=== PATIENT | male | born 1985 | race African-American/Black ===

== ENCOUNTER 2021-04-06 13:56 | Emergency (ER) | payer SELFPAY ==
--- NOTE | 2021-04-06 16:21 | EDM.PDOCBH ---
ED HPI GENERAL MEDICAL PROBLEM - General Chief Complaint: Behavioral/Psych Stated Complaint: SUICIDAL IDEATIONS Time Seen by Provider: 04/06/21 15:39 Source of Information: Reports: Patient History Limitations: Reports: No Limitations - History of Present Illness INITIAL COMMENTS - FREE TEXT/NARRATIVE: 35-year-old male presents the emergency department with complaints of suicidal ideations. Patient states he recently moved up here from [place] to get a job however he has not gotten 1 yet. He is currently homeless. States he has been sleeping outside or wherever he can find a place to stay. He states for the past few days he has been feeling hopeless and suicidal. He does have a history of suicide attempt 1 to 2 months ago and he tells me he was hospitalized for 5 d ays at that time. At that time he states he did attempt to jump in front of traffic to kill himself. He was discharged home on Haldol however he states that is too strong and he has not taking the medication. Does have a history of bipolar disorder and depression for about the past 8 years. He denies any illicit drug use. He denies alcohol use. And he does admit to smoking cigarettes from time to time. He states he is currently suicidal and states he will do whatever it takes to kill himself whether it be jump off a building etc. he does admit to having visual hallucinations such as being followed by someone trying to hurt him and he also sees flashes of lights. He is states when he sees the flashes of light it triggers him to feel homicidal. Physical exam is essentially unremarkable. The patient is hemodynamically stable. I have ordered labs to include a CBC, CMP, magnesium level, TSH, acetaminophen level, salicylate level, urine drug screen and blood alcohol level. We will obtain a Covid swab as well. - Related Data Allergies Allergy/AdvReac Type Severity Reaction Status Date / Time No Known Allergies Allergy Verified 04/06/21 14:34 Home Meds: Home Meds . [No Known Home Meds] 04/06/21 [History] Past Medical History - Past Health History Medical/Surgical History: Denies Medical/Surgical History Social & Family History - Tobacco Use Tobacco Use Status *Q: Never Tobacco User ED ROS GENERAL - Review of Systems Review Of Systems: Comprehensive ROS is negative, except as noted in HPI. ED EXAM, BEHAVIORAL HEALTH - Physical Exam Exam: See Below Exam Limited By: No Limitations General Appearance: Alert, WD/WN, No Apparent Distress Ears: Normal External Exam, Hearing Grossly Normal Nose: Normal Inspection Throat/Mouth: Normal Inspection, Normal Lips, Normal Voice, No Airway Compromise Head: Atraumatic, Normocephalic Neck: Normal Inspection, Supple Respiratory/Chest: No Respiratory Distress, Lungs Clear, Normal Breath Sounds, No Accessory Muscle Use, Chest Non-Tender Cardiovascular: Normal Peripheral Pulses, Regular Rate, Rhythm, No Edema, No Murmur GI/Abdominal: Normal Bowel Sounds, Soft, Non-Tender, No Distention (Male) Exam: Deferred Rectal (Males) Exam: Deferred Back Exam: Normal Inspection Extremities: Normal Inspection Neurological: Alert, Oriented x 3 COURSE, BEHAVIORAL HEALTH COMP - Course Vital Signs: Last Vital Signs Temp 97.5 F 04/06/21 14:29 Pulse 58 L 04/06/21 14:29 Resp 20 04/06/21 14:29 BP 127/76 04/06/21 14:29 Pulse Ox 99 04/06/21 14:29 Orders, Labs, Meds: Active Orders 24 hr Category Date Time Status Suicide Precautions [RC] Q15M Care 04/06/21 14:45 Active Laboratory Tests 04/06/21 04/06/21 04/06/21 Range/Units 13:05 13:05 14:45 WBC (4.23-9.07) K/mm3 RBC (4.63-6.08) M/mm3 Hgb (13.7-17.5) gm/dl Hct (40.1-51.0) % MCV (79.0-92.2) fl MCH (25.7-32.2) pg MCHC (32.2-35.5) g/dl RDW Std Deviation (35.1-43.9) fL Plt Count (163-337) K/mm3 MPV (9.4-12.3) fl Neut % (Auto) (34.0-67.9) % Lymph % (Auto) (21.8-53.1) % Trinity % (Auto) (5.3-12.2) % Eos % (Auto) (0.8-7.0) Baso % (Auto) (0.1-1.2) % Neut # (Auto) (1.78-5.38) K/mm3 Lymph # (Auto) (1.32-3.57) K/mm3 Trinity # (Auto) (0.30-0.82) K/mm3 Eos # (Auto) (0.04-0.54) K/mm3 Baso # (Auto) (0.01-0.08) K/mm3 Sodium (136-145) mEq/L Potassium (3.5-5.1) mEq/L Chloride (98-107) mEq/L Carbon Dioxide (21-32) mEq/L Anion Gap (5-15) BUN (7-18) mg/dL Creatinine (0.7-1.3) mg/dL Est Cr Clr Drug Dosing mL/min Estimated GFR (MDRD) (>60) mL/min BUN/Creatinine Ratio (14-18) Glucose (70-99) mg/dL Calcium (8.5-10.1) mg/dL Magnesium 1.9 (1.8-2.4) mg/dL Total Bilirubin (0.2-1.0) mg/dL AST (15-37) U/L ALT (16-63) U/L Alkaline Phosphatase (46-116) U/L Total Protein (6.4-8.2) g/dl Albumin (3.4-5.0) g/dl Globulin gm/dL Albumin/Globulin Ratio (1-2) TSH 3rd Generation 0.317 L (0.358-3.74) uIU/mL Salicylates 2.7 L (2.8-20) mg/dL Urine Opiates Screen (NRQCWJ=154) Ur Buprenorphine Scrn (CUTOFF=10) Ur Oxycodone Screen (IMJ8EC=791) Urine Methadone Screen (TDG9IX=281) Ur Propoxyphene Screen (LGJSJT=615) Acetaminophen 0 L (10-30) ug/mL Ur Barbiturates Screen (DYPFWT=252) Ur Tricyclics Screen (ZYPRXJ=914) Ur Phencyclidine Scrn (CUTOFF=25) Ur Amphetamine Screen (VSIGAM=907) U Methamphetamines Scrn (QQXHGP=132) U Benzodiazepines Scrn (PFJCTR=989) U Cocaine Metab Screen (DJEHPK=055) U Marijuana (THC) Screen (CUTOFF=50) Ethyl Alcohol (0.00) gm% SARS-CoV-2 RNA (VASQUEZ) Negative (NEGATIVE) 09/11/2104/06/21 04/06/21 Range/Units 15:05 15:05 17:10 WBC 5.25 (4.23-9.07) K/mm3 RBC 5.00 (4.63-6.08) M/mm3 Hgb 14.3 (13.7-17.5) gm/dl Hct 45.3 (40.1-51.0) % MCV 90.6 (79.0-92.2) fl MCH 28.6 (25.7-32.2) pg MCHC 31.6 L (32.2-35.5) g/dl RDW Std Deviation 46.6 H (35.1-43.9) fL Plt Count 270 (163-337) K/mm3 MPV 8.2 L (9.4-12.3) fl Neut % (Auto) 49.4 (34.0-67.9) % Lymph % (Auto) 37.7 (21.8-53.1) % Trinity % (Auto) 9.1 (5.3-12.2) % Eos % (Auto) 3.2 (0.8-7.0) Baso % (Auto) 0.6 (0.1-1.2) % Neut # (Auto) 2.59 (1.78-5.38) K/mm3 Lymph # (Auto) 1.98 (1.32-3.57) K/mm3 Trinity # (Auto) 0.48 (0.30-0.82) K/mm3 Eos # (Auto) 0.17 (0.04-0.54) K/mm3 Baso # (Auto) 0.03 (0.01-0.08) K/mm3 Sodium 143 (136-145) mEq/L Potassium 3.4 L (3.5-5.1) mEq/L Chloride 106 (98-107) mEq/L Carbon Dioxide 30 (21-32) mEq/L Anion Gap 10.4 (5-15) BUN 11 (7-18) mg/dL Creatinine 1.3 (0.7-1.3) mg/dL Est Cr Clr Drug Dosing 71.57 mL/min Estimated GFR (MDRD) > 60 (>60) mL/min BUN/Creatinine Ratio 8.5 L (14-18) Glucose 103 H (70-99) mg/dL Calcium 8.4 L (8.5-10.1) mg/dL Magnesium (1.8-2.4) mg/dL Total Bilirubin 0.7 (0.2-1.0) mg/dL AST 10 L (15-37) U/L ALT 18 (16-63) U/L Alkaline Phosphatase 62 (46-116) U/L Total Protein 6.9 (6.4-8.2) g/dl Albumin 3.5 (3.4-5.0) g/dl Globulin 3.4 gm/dL Albumin/Globulin Ratio 1.0 (1-2) TSH 3rd Generation (0.358-3.74) uIU/mL Salicylates (2.8-20) mg/dL Urine Opiates Screen Negative (CSKZUY=054) Ur Buprenorphine Scrn Negative (CUTOFF=10) Ur Oxycodone Screen Negative (WXD8ZY=984) Urine Methadone Screen Negative (ATA1GD=878) Ur Propoxyphene Screen Negative (ZNLTUY=871) Acetaminophen (10-30) ug/mL Ur Barbiturates Screen Negative (DEWTYL=525) Ur Tricyclics Screen Negative (ISQHAT=977) Ur Phencyclidine Scrn Negative (CUTOFF=25) Ur Amphetamine Screen Negative (IQEZVV=023) U Methamphetamines Scrn Presumptive positive H (MLSCSL=653) U Benzodiazepines Scrn Negative (STCMDV=449) U Cocaine Metab Screen Presumptive positive H (PPKITW=594) U Marijuana (THC) Screen Presumptive positive H (CUTOFF=50) Ethyl Alcohol 0.00 (0.00) gm% SARS-CoV-2 RNA (VASQUEZ) (NEGATIVE) Re-Assessment/Re-Exam: Discussed the case with [facility] physician on-call and he states he is going to be up to evaluate the patient's. Hematology reveals a WBC of 5.25, hemoglobin 14.3, hematocrit 45.3, platelet count 270 Chemistry reveals a sodium of 143, potassium 3.4, chloride 106, carbon dioxide 30, anion gap 10.4, BUN 11, creatinine 1.3, glucose 103, calcium 8.4, magnesium 1.9, TSH 0.317 Toxicology reveals salicylate level of 2.7, acetaminophen level of 0, ethyl alcohol 0.00, urine drug screen is presumptive positive for methamphetamines, presumptive positive for cocaine, presumptive positive for marijuana, patient is Covid negative After evaluation, patient has stated that if he does not receive inpatient treatment, he will be homicidal. [facility] director of environmental services states they do need to be committed and sent to inpatient treatment. I have phone [facility] call and they do not have any beds available. I then phoned [facility] call and they do have 1 bed available however I do not feel this patient is appropriate to have a roommate so they are going to see if they can move patients around in order to accept this patient and admit. They state they will be calling me back. [facility] ph[facility] me back and states they do not have a bed available for him as he will need a room by himself. [facility] has been contacted and we are waiting for callback. Re-Assessment/Re-Exam Date: 04/06/21 (After further evaluation, the patient will be discharged to the [facility].) Departure - Departure Time of Disposition: 20:00 Disposition: DC/Tfer to Psych Hosp/Unit 65 Condition: Good Clinical Impression: Depressive disorder, Hallucinations, Drug abuse - Discharge Information Referrals: PCP,None [Primary Care Provider] - Forms: ED Department Discharge Additional Instructions: You were seen in the emergency department with complaints of suicidal ideations. Labs were completed as well as Covid screening. Your Covid negative. After evaluation from [facility], it has been decided that he will be sent to the [facility]. Sepsis Event Note (ED) - Focused Exam Vital Signs: Vital Signs Temp Pulse Resp BP Pulse Ox 04/06/21 14:29 97.5 F 58 L 20 127/76 99 - My Orders Last 24 Hours: My Active Orders 04/06/21 14:45 Suicide Precautions [RC] Q15M - Assessment/Plan Last 24 Hours: My Active Orders 04/06/21 14:45 Suicide Precautions [RC] Q15M
--- NOTE | 2021-04-06 23:07 | PCM.EKG ---
#1 Interpretation EKG Date: 04/06/21 Time: 14:51 Rhythm: NSR Rate (Beats/Min): 58 [place]: Normal P-Wave: Present QRS: Normal ST-T: Normal QT: Normal Comparison: NA - No Prior EKG EKG Interpretation Comments: Per Dr. Hernandez interpretation: Sinus rhythm at 58 bpm; RSR prime V1 and [id number] normal variant; borderline LVH pattern; T wave inversion in V3; T wave flattened III
== END 2021-04-06 20:35 ==
LOC: JD.ED 13:56
DX: F32.9 Major depressive disorder, single episode, unspecified (principal); R44.3 Hallucinations, unspecified; F15.10 Other stimulant abuse, uncomplicated; F12.10 Cannabis abuse, uncomplicated; F14.10 Cocaine abuse, uncomplicated; F17.210 Nicotine dependence, cigarettes, uncomplicated; Z20.822 Contact with and (suspected) exposure to COVID-19
CPT/HCPCS: 36415; 80053; 80143; 80179; 80306; 80307; 83735; 84443; 85025; 93005; 99285; 99285-25; U0002

== ENCOUNTER 2024-03-06 23:43 | Emergency (ER) | payer SELFPAY ==
[2024-03-07] MEDS: LORazepam 1 MG Tab PO ONE (00:24)
[2024-03-07] MEDS: LORazepam 2 MG/ML SDV IM ONE (07:53)
[2024-03-07] MEDS: OLANZapine 10 MG Vial IM ONE (08:14)
[2024-03-07 09:01] LABS: BASOPHILS PERCENT AUTO 0.3 % (0.0-1.0); EOSINOPHILS ABSOLUTE AUTO 0.1 K/mm3 (0.0-0.4); EOSINOPHILS PERCENT AUTO 1.6 % (0.0-6.0); HEMATOCRIT 45.8 % (42.0-52.0); HEMOGLOBIN 14.6 gm/dl (14.0-18.0); IMMATURE GRAN ABSOLUTE AUTO 0.01 K/mm3 (0.00-0.05); IMMATURE GRAN PERCENT AUTO 0.2 % (0.0-0.4); LYMPHOCYTES ABSOLUTE AUTO 2.5 K/mm3 (1.0-4.8); LYMPHOCYTES PERCENT AUTO 40.7 % (24.0-44.0); MEAN CORPUSCULAR HEMOGLOBIN 27.4 pg (28.0-32.0); MEAN CORPUSCULAR HGB CONC 31.9 g/dl (32.0-36.0); MEAN CORPUSCULAR VOLUME 86.1 fl (83.0-99.0); MEAN PLATELET VOLUME 8.2 fl (9.4-12.4); MONOCYTES ABSOLUTE AUTO 0.5 K/mm3 (0.0-0.8); NEUTROPHILS PERCENT AUTO 49.2 % (41.0-71.0); PLATELET COUNT,PLT 262 K/mm3 (150-400); RED BLOOD CELL COUNT 5.32 M/mm3 (4.52-5.90); WHITE BLOOD CELL COUNT,WBC 6.14 K/mm3 (3.9-11.3)
[2024-03-07] MEDS: Haloperidol Lactate 5 MG/ML SDV IM ONE (09:04)
[2024-03-07] MEDS: diphenhydrAMINE 50 MG/ML SDV IVPUSH ONE (09:04)
[2024-03-07 09:30] LABS: ALBUMIN 3.6 g/dl (3.4-5.0); BILIRUBIN TOTAL 0.4 mg/dL (0.2-1.0); BUN/CREATININE RATIO 6.7 (14-18); CALCIUM 8.5 mg/dL (8.5-10.1); CREATININE 1.2 mg/dL (0.7-1.3); EST CRCL DRUG DOSING (CG) 67.17 mL/min; ETHANOL BLOOD MEDICAL 0.11 gm% (0.00); MAGNESIUM 1.9 mg/dL (1.8-2.4); PROTEIN TOTAL,TP 7.1 g/dl (6.4-8.2)
[2024-03-07] MEDS: OLANZapine 10 MG Vial ONE (09:41)
[2024-03-07 09:54] LABS: TSH 0.666 uIU/mL (0.358-3.74)
[2024-03-07 17:32] LABS: BARBITURATE SCREEN,URINE NEGATIVE (CUTOFF=200); BENZODIAZEPINES SCREEN,URINE PRESUMPTIVE POSITIVE (CUTOFF=150); BUPRENORPHINE SCREEN,URINE NEGATIVE (CUTOFF=10); METHADONE SCREEN, URINE NEGATIVE (CUT0FF=200); METHAMPHETAMINES SCREEN, URINE NEGATIVE (CUTOFF=500); OXYCODONE SCREEN,URINE NEGATIVE (CUT0FF=100); THC SCREEN,URINE 20 NG/ML NEGATIVE (CUTOFF=50)
[2024-03-07 17:35] LABS: AMPHETAMINES SCREEN, URINE NEGATIVE (CUTOFF=500)
== END 2024-03-07 19:34 ==
LOC: JD.ED 23:43
DX: R45.851 Suicidal ideations (principal); R44.3 Hallucinations, unspecified; F10.920 Alcohol use, unspecified with intoxication, uncomplicated; F31.9 Bipolar disorder, unspecified
CPT/HCPCS: 36415; 80053; 80143; 80179; 80306; 80307; 83735; 84443; 85025; 93005; 96372; 99285; A9270; C1758; J2060; J2405; 93010; 99284

== ENCOUNTER 2024-04-01 01:45 | Emergency (ER) | payer SELFPAY ==
[2024-04-01 06:54] LABS: BASOPHILS PERCENT AUTO 0.3 % (0.0-1.0); EOSINOPHILS ABSOLUTE AUTO 0.1 K/mm3 (0.0-0.4); EOSINOPHILS PERCENT AUTO 1.5 % (0.0-6.0); HEMATOCRIT 47.4 % (42.0-52.0); HEMOGLOBIN 15.3 gm/dl (14.0-18.0); IMMATURE GRAN ABSOLUTE AUTO 0.01 K/mm3 (0.00-0.05); IMMATURE GRAN PERCENT AUTO 0.2 % (0.0-0.4); LYMPHOCYTES ABSOLUTE AUTO 2.8 K/mm3 (1.0-4.8); LYMPHOCYTES PERCENT AUTO 42.1 % (24.0-44.0); MEAN CORPUSCULAR HEMOGLOBIN 27.6 pg (28.0-32.0); MEAN CORPUSCULAR HGB CONC 32.3 g/dl (32.0-36.0); MEAN CORPUSCULAR VOLUME 85.6 fl (83.0-99.0); MEAN PLATELET VOLUME 8.5 fl (9.4-12.4); MONOCYTES ABSOLUTE AUTO 0.7 K/mm3 (0.0-0.8); MONOCYTES PERCENT AUTO 10.2 % (0.0-8.0); NEUTROPHILS PERCENT AUTO 45.7 % (41.0-71.0); PLATELET COUNT,PLT 255 K/mm3 (150-400); RED BLOOD CELL COUNT 5.54 M/mm3 (4.52-5.90); WHITE BLOOD CELL COUNT,WBC 6.65 K/mm3 (3.9-11.3)
[2024-04-01 07:32] LABS: A/G RATIO 1.1 (1-2); ALBUMIN 3.7 g/dl (3.4-5.0); ANION GAP 13.8 (5-15); BILIRUBIN TOTAL 0.8 mg/dL (0.2-1.0); BUN/CREATININE RATIO 13.6 (14-18); CALCIUM 9.2 mg/dL (8.5-10.1); CREATININE 1.4 mg/dL (0.7-1.3); EST CRCL DRUG DOSING (CG) 73.87 mL/min; POTASSIUM,K 3.8 mEq/L (3.5-5.1); PROTEIN TOTAL,TP 7.2 g/dl (6.4-8.2); TSH 2.71 uIU/mL (0.358-3.74)
[2024-04-01 10:19] LABS: BARBITURATE SCREEN,URINE NEGATIVE (CUTOFF=200); BENZODIAZEPINES SCREEN,URINE NEGATIVE (CUTOFF=150); BUPRENORPHINE SCREEN,URINE NEGATIVE (CUTOFF=10); METHADONE SCREEN, URINE NEGATIVE (CUT0FF=200); METHAMPHETAMINES SCREEN, URINE NEGATIVE (CUTOFF=500); OXYCODONE SCREEN,URINE NEGATIVE (CUT0FF=100); THC SCREEN,URINE 20 NG/ML NEGATIVE (CUTOFF=50)
[2024-04-01 10:21] LABS: AMPHETAMINES SCREEN, URINE NEGATIVE (CUTOFF=500)
[2024-04-01] MEDS: QUEtiapine 100 MG Tab PO ONE (11:48)
[2024-04-01] MEDS: Cholecalciferol (Vitamin D3) 25 MCG Tab PO SCH (11:48)
[2024-04-01] MEDS: Topiramate 25 MG Tab PO SCH (11:49)
[2024-04-01] MEDS: Folic Acid 1 MG Tab PO SCH (11:49)
[2024-04-01] MEDS: Vitamin B6-pyridOXINE 50 MG Tab PO SCH (21:37)
[2024-04-01] MEDS: Cyanocobalamin (Vitamin B12) 1,000 MCG Tab PO SCH (21:38)
[2024-04-01] MEDS: QUEtiapine 100 MG Tab PO SCH (21:38)
== END 2024-04-01 22:35 ==
LOC: JD.ED 01:45
DX: F32.A Depression, unspecified (principal); R45.851 Suicidal ideations; Z59.00 Homelessness unspecified
CPT/HCPCS: 36415; 80053; 80143; 80179; 80306; 80307; 84443; 85025; 99285; A9270